=== PATIENT | male | born 1965 | race Caucasian/White ===

== ENCOUNTER 2018-10-24 10:08 | Emergency (ER) | payer OTHER ==
[~2018-10-24] VITALS: Ht 185.4 cm; Wt 121.8 kg
[2018-10-24 10:19] VITALS: Ht 185.4 cm; Wt 121.8 kg
[2018-10-24] MEDS ORDERED: HYDROCODON-ACE1 EA10 PO (10:21)
[2018-10-24] MEDS ORDERED: ADDERALL 30 MG30 MG PO (10:21)
[2018-10-24] MEDS ORDERED: ADVIL200 MG PO (10:22)
[2018-10-24] MEDS ORDERED: CELEXA40 MG PO (10:22)
[2018-10-24 10:42] LABS: HEMATOCRIT 41.4 % (42.0-54.0); HEMOGLOBIN 14.7 g/dL (13.5-17.5); LYMPHOCYTES 19.2 % (15-50); MCH 28.5 pg (26.0-34.0); MCHC 35.5 g/dL (31.0-37.0); MCV 80.4 fL (80.0-100.0); MEAN PLATELET VOLUME 8.8 fL (7.4-10.4); NEUTROPHILS 68.7 % (40-80); PLATELET COUNT 210 10x3/uL (130-400); RBC 5.15 10x6/uL (4.20-6.10); WBC 6.2 10x3/uL (4.8-10.8)
[2018-10-24 10:54] LABS: INR 1.06 (0.85-1.17); PROTIME 13.3 SECONDS (11.6-15.0)
[2018-10-24 10:55] LABS: APTT 30.6 SECONDS (22.8-39.4)
[2018-10-24 10:56] LABS: D-DIMER-QUANTITATIVE 0.37 ug/mLFEU (0.20-0.54)
[2018-10-24 11:03] LABS: ALBUMIN 3.4 g/dL (3.4-5.0); ALKALINE PHOSPHATASE 83 U/L (46-116); ALT (SGPT) 28 U/L (10-68); BILIRUBIN - TOTAL 0.49 mg/dL (0.2-1.3); CALC OSMOLALITY 277 mosm/kg (275-300); CALCIUM 9.1 mg/dL (8.5-10.1); CARBON DIOXIDE 26.3 mmol/L (21.0-32.0); CHLORIDE - SERUM 103 mmol/L (98-107); GLUCOSE 111 mg/dL (74-106); POTASSIUM - SERUM 4.2 mmol/L (3.5-5.1); PROTEIN - SERUM 7.6 g/dL (6.4-8.2); SODIUM 137 mmol/L (136-145); UREA NITROGEN 20 mg/dL (7-18); eGFR NON AFRICAN AMERICAN 83 mL/min (90-120)
[2018-10-24 11:08] LABS: CKMB 0.9 U/L (0.0-3.6); CREATINE KINASE 57 UL (21-232); MAGNESIUM - SERUM 1.9 mg/dL (1.8-2.4); TROPONIN-I < 0.017 ng/mL (0.000-0.060)
[2018-10-24 12:36] VITALS: BP 117/79
== END 2018-10-24 12:36 | disposition home or self-care (01) ==
LOC: D.ER 10:08
PROVIDERS: Emergency Medicine
DX: R07.89 Other chest pain (principal)

== ENCOUNTER → 2018-10-26 08:13 | Outpatient (CLI) | payer OTHER ==
[2018-10-24 10:19] VITALS: BMI 35.4
[~2018-10-26 08:13] MED LIST: ADDERALL 30 MG30 MG PO; ADVIL200 MG PO; CELEXA40 MG PO; HYDROCODON-ACE1 EA10 PO
== END | disposition home or self-care (01) ==
LOC: D.HCCARDIO 08:13
PROVIDERS: ATTEND Internal Medicine Cardiovascular Disease
DX: R07.9 Chest pain, unspecified (principal)

== ENCOUNTER 2018-11-08 06:06 | Outpatient (CLI) | payer OTHER ==
[~2018-11-08] VITALS: Ht 185.4 cm; Wt 118.2 kg
--- NOTE | ~2018-11-08 | HEMODYNAMI ---
PATIENT:PHILIP POLO MEDICAL RECORD: [id number] : 67 LOCATION:[facility] ADMISSION DATE: 11/08/18 Generatedon:11/08/20188:46 Patient name: PHILIP POLO Patient #: [id number] SSN: : 1965 Date of study: 11/08/2018 Page: Of Hemodynamic Procedure Report Patient Data Patient Demographics Procedure consent was obtained First Name: PHILIP Gender: Male Last Name: CHRIST : 1965 Middle Initial: BEAU Age: 53 year(s) Patient #: [id number] Race: Unknown Additional ID: [id number] Contact details Address: [address] [place] [address] State: [place] City: [place] Zip code: [address] Past Medical History Performed procedures and imaging results Date Procedure Procedure Results Comments Stress testing Positive->Intermediate with SPECT MPI risk Allergies: No known allergies Admission Admission Data Admission Date: 11/08/2018 Admission Time: 6:06 Arrival Date: 11/08/2018 Arrival Time: 0:00 Insurance Payor: Private health insurance [facility] #: [id number] Height (in.): 72.83 BSA: 2.4 (m2) Height (cm.): 185 BMI: 34.48 (kg/m2) Weight (lbs.): 260.15 Weight (kg.): 118 Lab Results Lab Result Date: 11/08/2018 Lab Result Time: 0:00 Biochemistry Name Units Result Min Max BUN mg/dl 19 --(----)*- 7 18 Creatinine mg/dl 0.8 --(-*--)-- 0.6 1.3 eGFR ml/min 90 --(*---)-- 90 120 NONAFRICAN CBC Name Units Result Min Max Hematocrit % 40.3 -*(----)-- 42 54 Hemoglobin g/dl 14.7 --(-*--)-- 13.5 17.5 Procedure Procedure Types Cath Procedure Diagnostic Procedure C LHC w/Coronaries Sedation Charges Moderate Sedation up to 15 minutes Procedure Description Procedure Date Procedure Date: 11/08/2018 Procedure Start Time: 8:21 Procedure End Time: 8:44 Procedure Staff Name Function Helder Ortiz MD Performing Physician Sarah Masters RT Monitor Flor Whitlock RT Scrub Claudia Pleitez RN Nurse Indication Nuclear stress test Procedure Data Cath Procedure Fluoroscopy Diagnostic fluoroscopy Total fluoroscopy Time: 8 time: 8 min min Diagnostic fluoroscopy Total fluoroscopy dose: dose: 1155 mGy 1155 mGy Contrast Material Contrast Material Type Amount (ml) Isovue 300 126 Entry Location Entry Primary Successful Side Size Upsize Upsize Entry Closure Pandya ccessful Closure Location (Fr) 1 (Fr) 2 (Fr) Remarks Device Remarks Radial Right 6 Fr Mechanical artery Short Compression Estimated blood loss: 5 ml Diagnostic catheters Device Type Used For End Catheter Placement DIAGNOSTIC Gopal 110cm Procedure 5Fr catheter ([id number]) DIAGNOSTIC [place] 4.5 5Fr Procedure catheter (294885) DIAGNOSTIC AR1 MOD 5Fr Procedure catheter ([id number]) DIAGNOSTIC [place] 110cm 5 Procedure Fr catheter (885925) Procedure Complications No complications Procedure Medications Medication Administration Route Dosage Oxygen etCO2 Nasal cannula 2 l/min Lidocaine 2% added to field 20 Heparin Flush Bag added to field 2 bags (1000units/500ml NS) 0.9% NaCl I.V. 100 ml/hr Radial Cocktail I.A. 1 syringe (Verapamil 2mg/Nitro 400mcg/Heparin 1500units) Versed I.V. 2 mg Fentanyl I.V. 50 mcg Versed I.V. 1 mg Fentanyl I.V. 50 mcg Hemodynamics Rest BSA: 2.4 (m2) HGB: 14.7 (g/dl) O2 Consumption: Estimated: 276.54 (ml/min) O2 Con sumption indexed: Estimated:115.22 (ml/min/m) Heart Rate: 60 (bpm) Pressure Samples Time Site Value (mmHg) Purpose Heart Use Rate(bpm) 8:26 LV 110/-9,4 Snapshot 77 8:27 AO 103/65(79) Pullback 78 8:27 LV 108/-5,9 Pullback 78 Gradients Valve Time Site 1 Site 2 Mean SEP/DFP Peak To Heart Use (mmHg) (sec/min) Peak Rate (mmHg) (bpm) Aortic 8:27 LV AO 5 4 5 78 108/-5,9 103/65(79) Calculations Valve P-P Mean Valve Index Valve Source Name Gradient Area Flow (cm2) Aortic 5 5 5 5 Snapshots Pre Cath Intra NCS Post Cath Vital Signs Time Heart Resp SPO2 etCO2 NIBP Rhythm Pain Sedation Rate (ipm) (%) (mmHg) (mmHg) Status Level (bpm) 8:09:29 62 13 93 37.5 120/78(87) NSR 0 (11) 10(A) , No pain 8:13:45 66 15 92 33 119/74(91) NSR 0 (11) 10(A) , No pain 8:19:00 66 10 95 32.3 113/75(88) NSR 0 (11) 10(A) , No pain 8:23:12 61 14 92 38.3 110/72(93) NSR 0 (11) 10(A) , No pain 8:27:24 76 14 94 27.7 106/68(80) NSR 0 (11) 9(A) , No pain 8:31:40 72 13 95 0 103/66(79) NSR 0 (11) 9(A) , No pain 8:35:56 62 17 94 36 112/65(88) NSR 0 (11) 9(A) , No pain 8:40:10 69 13 95 39.8 115/72(83) NSR 0 (11) 10(A) , No pain 8:44:24 62 13 94 39.1 108/71(82) NSR 0 (11) 10(A) , No pain Medications Time Medication Route Dose Verified Delivered Reason Notes Effectiveness by by 8:08:46 Oxygen etCO2 2 l/min Helder Buffie used for Nasal Angel Pleitez RN procedure cannula 8:08:53 Lidocaine 2% added 20ml Helder Helder for local to vial Angel Ortiz MD anesthetic field 8:08:58 Heparin Flush added 2 bags Helder Helder used for Bag to Angel Ortiz MD procedure (1000units/500ml field NS) 8:09:08 0.9% NaCl I.V. 100 Helder Buffie Per ml/hr Angel Pleitez RN physician 8:17:31 Versed I.V. 2 mg Helder Buffie for sedation Angel Pleitez RN 8:17:37 Fentanyl I.V. 50 mcg Helder Buffie for sedation Angel Pleitez RN 8:24:15 Radial Cocktail I.A. 1 Helder Helder for (Verapamil syringe Angel Ortiz MD vasodilation 2mg/Nitro 400mcg/Heparin 1500units) 8:27:10 Versed I.V. 1 mg Helder Buffie for sedation nAgel Pleitez RN 8:27:15 Fentanyl I.V. 50 mcg Helder Krisie for sedation Angel Pleitez RN Procedure Log Time Note 7:42:05 Claudia Pleitez RN sent for patient. Start room use. 7:42:11 Plan of Care:Hemodynamics will remain stable., Cardiac rhythm will remain stable., Comfort level will be maintained., Respiratory function will remain adequate., Patient/ family verbilizes understanding of procedure., Procedure tolerated without complication., Recovers from procedure without complications.. 7:47:07 Procedure Status Elective Heart Cath (OP). 7:47:08 Time tracking: Regular hours (M-F 7:00 - 5:00) 7:47:12 Signed procedure consent form obtained from patient. 7:51:02 Patient Weight : 260.15 lbs 7:51:11 Arrival Date: 11/08/2018 12:00:00 AM 7:51:24 Insurance Payor : Private health insurance 7:51:44 Patient Height : 72.83 inches 7:52:12 Lab Result : Hemoglobin 14.7 g/dl 7:52:12 Lab Result : Hematocrit 40.3 % 7:52:12 Lab Result : eGFR NONAFRICAN 90 ml/min 7:52:12 Lab Result : BUN 19 mg/dl 7:52:12 Lab Result : Creatinine 0.8 mg/dl 7:54:15 Indication : Nuclear stress test 7:56:12 Patient received from Pre/Post Procedure Room to CCL 1 Alert and oriented. Tansferred to table in Supine position. 7:56:13 Warm blankets applied, and oral hugger turned on for patient comfort. 7:56:14 Correct patient and procedure confirmed by team. 7:56:14 ECG and BP/O2 sat monitors applied to patient. 8:08:17 Vital chart was started 8:08:20 Baseline sample Acquired. 8:08:24 Rhythm: sinus bradycardia 8:08:25 Full Disclosure recording started 8:08:28 H&P Date Dictated: 11/08/2018 New H&P dictated by physician.. 8:08:29 Pre-procedure instructions explained to patient. 8:08:29 Pre-op teaching completed and patient verbalized understanding. 8:08:31 Family in patients room. 8:08:32 Patient NPO since Midnight. 8:08:41 Patient allergic to No known allergies 8:08:46 Oxygen 2 l/min etCO2 Nasal cannula was administered by Claudia Pleitez RN; used for procedure; Verbal order read back and verified. 8:08:53 Lidocaine 2% 20ml vial added to field was administered by Helder Ortiz MD; for local anesthetic; Verbal order read back and verified. 8:08:53 Is patient on blood thinner?No 8:08:55 Patient diabetic? No. 8:08:57 Previous problem with sedation/anesthesia? No ? 8:08:58 Heparin Flush Bag (1000units/500ml NS) 2 bags added to field was administered by Helder Ortiz MD; used for procedure; Verbal order read back and verified. 8:08:58 Snore? Yes 8:08:59 Sleep apnea? No 8:09:00 Deviated septum? No 8:09:02 Opens mouth fully? Yes 8:09:04 Sticks out tongue? Yes 8:09:06 Airway obstruction? No ? 8:09:08 0.9% NaCl 100 ml/hr I.V. was administered by Claudia Pleitez RN; Per physician; Verbal order read back and verified. 8:09:08 Dentures? No ? 8:09:11 Modified Marcus's test Ulnar < 7 seconds 8:09:14 Pre procedure: right dorsailis pedis pulse 1+ Palpable, but thready & weak; easily obliterated 8:09:16 Patient pain scale 0/10 ?. 8:09:19 IV patent on arrival in left hand with 0.9% NaCl at [facility]. 8:09:22 Lab results completed and on chart. 8:09:28 Right Radial & Right Groin area was prepped with chlora-prep and draped in sterile fashion 8:09:29 Alarms reviewed by R. N. 8:09:29 Sharps counted by scrub and verified by R.N. 8:09:33 Use device set Radial Dx or PCI 8:09:34 ACIST Syringe (28529) opened to sterile field. 8:09:35 Bag Decanter () opened to sterile field. 8:09:35 ACIST Hand Control (88480) opened to sterile field. 8:09:35 ACIST Manifold (45970) opened to sterile field. 8:09:36 Tegaderm 4 x 4 (1626W) opened to sterile field. 8:09:37 Medline Cath Pack ([id number]) opened to sterile field. 8:09:38 MBrace Wrist Support ([id number]) opened to sterile field. 8:09:39 NEEDLE Cook 21G 4cm Radial (K31599) opened to sterile field. 8:09:41 EMERALD Guide Wire (502-726) opened to sterile field. 8:09:41 SHEATH 6FR RAIN (2486777) opened to sterile field. 8:13:21 Diagnostic Cath Status : Elective 8:13:21 PCI Cath Status : Elective 8:15:53 --------ALL STOP TIME OUT------ 8:15:53 Final Timeout: patient, procedure, and site verified with staff and physician. All members of the team are in agreement. 8:15:56 Right Radial & Right Groin site verified by team. 8:15:59 Fire Safety Assessment: A--An alcohol-based skin anteseptic being used preoperatively., C--Open oxygen or nitrous oxide is being used., D--An ESU, laser, or fiber-optic light is being used. 8:16:04 Physical assessment completed. ASA score P 2 - A patient with mild systemic disease as per Helder Ortiz MD. 8:16:06 1) 90+ Normal kidney functon but urine findings or structural abnormalities or genetic trait point to kidney disease. 8:16:08 Maximum allowable contrast dose (3.7 X eGFR X 0.75)250 ml. 8:16:12 Sedation plan: IV Moderate Sedation Medication:Versed, Fentanyl 8:16:26 Zero performed for pressure channel P1 8:17:31 Versed 2 mg I.V. was administered by Claudia Pleitez RN; for sedation; Verbal order read back and verified. 8:17:37 Fentanyl 50 mcg I.V. was administered by Claudia Pleitez RN; for sedation; Verbal order read back and verified. 8:21:08 Procedure started. 8:21:39 Local anesthetic to right radial artery with Lidocaine 2% by Helder Ortiz MD.INITIAL ACCESS ONLY 8:23:20 A 6 Fr Short sheath was inserted into the Right Radial artery 8:24:10 A DIAGNOSTIC Gopal 110cm 5Fr catheter ([id number]) was advanced over the wire and used for Procedure. 8:24:15 Radial Cocktail (Verapamil 2mg/Nitro 400mcg/Heparin 1500units) 1 syringe I.A. was administered by Helder Ortiz MD; for vasodilation; Verbal order read back and verified. 8:25:53 LV gram done using DEL CASTILLO 8::56 Injector settings: Ml/sec: 5, Volume: 15, 8:26:26 LV hemodynamics recorded. 8:26:50 EF : 60 % 8:27:10 Versed 1 mg I.V. was administered by Claudia Pleitez RN; for sedation; Verbal order read back and verified. 8:27:15 Fentanyl 50 mcg I.V. was administered by Claudia Pleitez RN; for sedation; Verbal order read back and verified. 8:28:38 Catheter exchanged over wire. 8:28:52 UNABLE TO ENGAGE LCA AND RCA 8:29:24 A DIAGNOSTIC [place] 4.5 5Fr catheter (530005) was advanced over the wire and used for Procedure. 8:31:29 UNABLE TO ENGAGE 8:32:15 A DIAGNOSTIC AR1 MOD 5Fr catheter ([id number]) was advanced over the wire and used for Procedure. 8:33:26 RCA angiography performed. 8:33:50 Catheter exchanged over wire. 8:35:08 A DIAGNOSTIC [place] 110cm 5 Fr catheter (978884) was advanced over the wire and used for Procedure. 8:36:34 LCA angiography performed. 8:40:59 Catheter removed. 8:41:02 Procedure ended.(Physican Out) 8:42:17 ZEPHYR REGULAR TR BAND (317243) opened to sterile field. 8:42:23 Sheath removed intact; hemostasis achieved with Mechanical Compression to the Right Radial artery. 8:42:28 Fluoroscopy time 08.00 minutes. 8:42:31 Fluoroscopy dose: 1155 mGy 8:42:31 Flurop Dose total: 1155 8:42:37 Dose Area Product 20254 mGy/cm. 8:42:52 Contrast amount:Isovue 300 126ml. 8:42:56 Maximum allowable dose exceeded? No. 8:42:57 Sharps counted by scrub and verified by R.N. 8:43:00 Matheny band inflated with 10cc of air. 8:43:03 Post-procedure physical assessment completed. ASA score P 2 - A patient with mild systemic disease as per Helder Ortiz MD. 8:43:06 Post procedure rhythm: sinus rhythm 8:43:08 Estimated blood loss: 5 ml 8:43:09 Post procedure instruction explained to patient.Patient verbalizes understanding. 8:43:09 Patient needs reinforcement of post procedure teaching. 8:43:30 Procedure type changed to Cath procedure, Diagnostic procedure, LHC, LHC w/Coronaries, Sedation Charges, Moderate Sedation up to 15 minutes 8:44:08 Procedure and supply charges have been captured, reviewed, submitted and are correct. 8:44:11 Procedure Complication : No complications 8:44:12 Vital chart was stopped 8:44:13 See physician's report for complete and final results. 8:44:16 Report given to Pre/Post Procedure Room. 8:44:18 Patient transfered to Pre/Post Procedure Room with Bed. 8:44:20 Procedure ended. 8:44:20 Full Disclosure recording stopped 8:44:26 End room use (Document Last) 8:45:56 End room use (Document Last) 8:46:18 End room use (Document Last) Device Usage Item Name Manufacture Quantity Catalog Hospital Part Current Minima l Lot# / Number Charge Number Stock Stock Serial# Code ACIST Acist 1 18699 829559 777509 [id number] 20 Syringe Medical (94233) Systems Inc Bag Microtek 1 275609 06312 681767 5 Decanter Medical Inc. () ACIST Hand Acist 1 94716 890834 636619 433310 5 Control Medical (82884) Systems Inc ACIST Acist 1 67998 755785 642106 975513 5 Manifold Medical (54218) Systems Inc Tegaderm 4 3M 1 1626W 713892 501669 914446 5 x 4 (1626W) Medline Medline 1 [id number] 903209 30203 229742 5 Cath Pack ([id number]) MBrace Advanced 1 140-0250-00 623193 25976 480790 5 Wrist Vascular Support Dynamics ([id number]) NEEDLE [facility] 1 T85161 711846 072014 831341 5 21G 4cm Radial (E50287) EMERALD Cardinal 1 502-455 461724 395137 234312 5 Guide Wire Health (502-455) SHEATH 6FR Cardinal 1 9854121 971599 2059882 083689 5 [facility] Health (9091926) DIAGNOSTIC Terumo 1 40-5023 399692 483035 219605 5 Gopal 110cm 5Fr catheter (916304) DIAGNOSTIC Terumo 1 40-5012 747962 245113 319081 5 [place] 4.5 5Fr catheter (816199) DIAGNOSTIC Cardinal 1 [id number] 568460 698306 304971 15 AR1 MOD 5Fr Health catheter (001860J) DIAGNOSTIC Terumo 1 40-5013 802475 951427 358968 5 [place] 110cm 5 Fr catheter (828791) ZEPHYR Cardinal 1 233485 995748 1665350 341924 5 REGULAR TR Health BAND (710742) Signature Audit Industry Stage Time Signature Unsigned Intra-Procedure 11/08/2018 Sarah Masters 8:45:56 AM RT(R) Intra-Procedure 11/08/2018 Claudia Pleitez RN 8:46:18 AM Intra-Procedure 11/08/2018 Helder Ortiz MD 8:46:40 AM [facility] [address] [place] [address]
[2018-11-08 06:44] VITALS: BP 127/86; Ht 185.4 cm; Wt 118.2 kg
[2018-11-08 06:57] LABS: BASOPHILS 0.3 % (0-2); EOSINOPHILS 1.5 % (0-7); HEMATOCRIT 40.3 % (42.0-54.0); HEMOGLOBIN 14.7 g/dL (13.5-17.5); IMMATURE GRANULOCYTES 0.1 % (0-5); LYMPHOCYTES 15.6 % (15-50); MCH 29.5 pg (26.0-34.0); MCHC 36.5 g/dL (31.0-37.0); MCV 80.8 fL (80.0-100.0); MEAN PLATELET VOLUME 9.4 fL (7.4-10.4); NEUTROPHILS 73.5 % (40-80); PLATELET COUNT 215 10x3/uL (130-400); RBC 4.99 10x6/uL (4.20-6.10); RDW 13.4 % (11.5-14.5); WBC 9.1 10x3/uL (4.8-10.8)
[2018-11-08 07:02] LABS: ALT (SGPT) 29 U/L (10-68); CALC OSMOLALITY 280 mosm/kg (275-300); CALCIUM 8.8 mg/dL (8.5-10.1); CARBON DIOXIDE 26.9 mmol/L (21.0-32.0); CHLORIDE - SERUM 104 mmol/L (98-107); CHOL - HDL RATIO 4.7 ratio (2.3-4.9); CHOLESTEROL, TOTAL 122 mg/dL (0-200); CREATININE - SERUM 0.8 mg/dL (0.6-1.3); GLUCOSE 110 mg/dL (74-106); HDL CHOLESTEROL 26 mg/dL (32-96); LDL CHOLESTEROL 66 mg/dL (0-100); LDL-HDL RATIO 2.5 ratio (1.5-3.5); POTASSIUM - SERUM 4.1 mmol/L (3.5-5.1); SODIUM 139 mmol/L (136-145); TRIGLYCERIDE 151 mg/dL (30-200); UREA NITROGEN 19 mg/dL (7-18); eGFR NON AFRICAN AMERICAN > 90 mL/min (90-120)
--- NOTE | 2018-11-08 08:55 | NUR ---
PT ARRIVED BY STRETCHER. PLACED ON MONITORS. ASSESSMENT COMPLETED. VSS. FAMILY AT BEDSIDE. DR. ADKINS AT BEDSIDE AND UPDATED PT'S FAMILY.
--- NOTE | 2018-11-08 09:10 | NUR ---
PT RESTING COMFORTABLY. VSS. RIGHT WRIST Z BAND IN PLACE. NO BLEEDING/HEMATOMA NOTED. CALL LIGHT WITHIN REACH. WILL CONTINUE TO MONITOR.
--- NOTE | 2018-11-08 09:40 | NUR ---
VSS. RIGHT WRIST Z BAND IN PLACE. NO BLEEDING/HEMATOMA NOTED. CALL LIGHT WITHIN REACH. NO NEEDS AT THIS TIME.
--- NOTE | 2018-11-08 10:10 | NUR ---
4cc OF AIR REMOVED FROM Z BAND. NO BLEEDING/HEMATOMA NOTED. CALL LIGHT WITHIN REACH. PT SITTING UP IN BED. SET UP WITH SANDWICH TRAY AND DRINK. O2 SAT 96% ON ROOM AIR. BP 110/80. HR 82.
--- NOTE | 2018-11-08 10:25 | NUR ---
4cc OF AIR REMOVED FROM Z BAND. NO BLEEDING/HEMATOMA NOTED. PT EATING SANDWICH. DENIES NAUSEA/PAIN AT THIS TIME. CALL LIGHT WITHIN REACH.
--- NOTE | 2018-11-08 10:45 | NUR ---
PIV D/C'D WITH CATH TIP INTACT. TOLERATED WELL. VSS. PT INSTRUCTED TO GET UP AND DRESSED. RIGHT WRIST Z BAND REMOVED AND DRESSING APPLIED. NO BLEEDING/HEMATOMA NOTED. FAMILY AT BEDSIDE TO ASSIST PT IN GETTING DRESSED. RIGHT WRIST BRACE IN PLACE AND PT INSTRUCTED TO KEEP ON FOR 2 HOURS AFTER ARRIVAL HOME.
--- NOTE | 2018-11-08 11:00 | NUR ---
RIGHT WRIST DRESSING C/D/I. NO S/S OF HEMATOMA NOTED.
--- NOTE | 2018-11-08 11:00 | NUR ---
DISCUSSED DISCHARGE INSTRUCTIONS WITH PT AND PT'S FAMILY. THEY VOICED UNDERSTANDING.
--- NOTE | 2018-11-08 11:05 | NUR ---
PT TO RESTROOM. VOIDED WITHOUT DIFFICULTY. TAKEN OUT TO VEHICLE BY WHEELCHAIR. NO S/S OF DISTRESS NOTED. ALL BELONGINGS AND PAPERWORK IN HAND.
== END 2018-11-08 11:05 | disposition home or self-care (01) ==
LOC: D.CATH 06:06
PROVIDERS: ATTEND Internal Medicine Cardiovascular Disease
DX: R07.9 Chest pain, unspecified (principal); R94.30 Abnormal result of cardiovascular function study, unspecified